=== PATIENT | female | born 1960 | race Caucasian/White ===

== ENCOUNTER → 2016-07-29 | Outpatient (CLI) | payer MEDICAID | LOC: FIMAGING 15:59 | PROVIDERS: ATTEND Physician Assistant Medical | DX: R94.02 Abnormal brain scan (principal); R51 Headache; R68.89 Other general symptoms and signs ==

== ENCOUNTER → 2016-07-30 | Outpatient (CLI) | payer MEDICAID ==
--- NOTE | 2016-07-30 11:57 | CPEEG ---
[f rep st] ELECTROENCEPHALOGRAM DATE OF STUDY: 07/30/2016 INTERPRETATION: Normal EEG during wakefulness and sleep. There were no potentially epileptogenic abnormalities present during the recordings. REPORT: This EEG contains 10 Hz alpha to the posterior head regions. There was no activation at rest, during photic stimulation or hyperventilation. The patient became drowsy and fell into sustained sleep during the study. There was no abnormal activation during drowsiness, sleep, or during times of arousal. /[id number]/MODL MTDD
== END ==
LOC: FCPNEURO 08:55
PROVIDERS: ATTEND Psychiatry & Neurology Neurology
DX: R68.89 Other general symptoms and signs (principal); R51 Headache; Z87.820 Personal history of traumatic brain injury